=== PATIENT | male | born 2000 | race Caucasian/White ===

== ENCOUNTER 2018-03-29 20:46 | Emergency (ER) | payer OTHER ==
[~2018-03-29] VITALS: Ht 177.8 cm; Wt 75.0 kg
[2018-03-29 20:50] VITALS: BP 144/85
[2018-03-29] MEDS ORDERED: LIDOcaine 1% 30ml preserv. free vial IJ ONE (21:30)
== END 2018-03-29 21:55 | disposition home or self-care (01) ==
LOC: ER 20:48
DX: S91.319A Laceration without foreign body, unspecified foot, initial encounter (principal); W45.8XXA Other foreign body or object entering through skin, initial encounter; Y93.89 Activity, other specified; Y92.89 Other specified places as the place of occurrence of the external cause; Y99.8 Other external cause status
CPT/HCPCS: 99283